=== PATIENT | male | born 1960 | race Caucasian/White ===

== ENCOUNTER 2018-02-08 10:00 | Inpatient (IN) | payer OTHER ==
[2018-02-08] MEDS ORDERED: FUROSEMIDE 10 MG/ML 4 ML VIAL IV STA (10:32)
[2018-02-08] MEDS ORDERED: NITROGLYCERIN OINT 1 INCH/GM PACKET TOPICAL STA (10:34)
[2018-02-08] MEDS ORDERED: ASPIRIN 81 MG PO STA (10:34)
--- NOTE | 2018-02-08 10:41 | ED ---
SOB HPI - General Chief Complaint: Shortness of Breath Stated Complaint: Water Retention Time Seen by Provider: 02/08/18 10:21 Source: patient Mode of arrival: wheelchair Limitations: no limitations - History of Present Illness Initial Comments: This 57-year-old white male presents with a complaint of shortness breath. He relates that the shortness of breath is much worse with any exertion. He's had some severe lower extremity edema as well. He denies any chest pain. He's had a cough with whitish to yellowish production. His symptoms initially came on in October 2017 but have progressed. He receives most of his care thus far through [facility] in [place]. He relates that he was diagnosed with a pericardial effusion which was initially diagnosed as mild but then has progressed to moderate. No intervention was done in relation to this pericardial effusion. He does relate that he normally will take Motrin or Aleve and this seems to help with the pericardial effusion. He also had his last echo 2 weeks ago through [facility]. He is diagnosed with gallbladder disease and is scheduled to have his gallbladder out tomorrow by Dr. Manzo. He states that he has had to stop the Motrin or Aleve due to the upcoming surgery. Symptoms now seem to have worsened. He was seen and Dr. garg on Lj's office today and sent to the ER for suspected congestive heart failure and atrial fibrillation. He does relate that he has atrial fibrillation. He was on blood thinners but stopped them this past fall. He states that he had a difficult time controlling a accurate level for his Coumadin. He denies any fevers or chills. No other complaints or modifying factors. - Related Data Home Medications Medication Instructions Recorded Confirmed Bumetanide 2 mg PO BID 02/06/18 02/08/18 Potassium Chloride [Klor-Con 20] 20 meq PO DAILY 02/06/18 02/08/18 Allergies Allergy/AdvReac Type Severity Reaction Status Date / Time morphine Allergy irregular Verified 02/08/18 10:18 heartbeat vancomycin Allergy Rash/Hives Verified 02/08/18 10:18 Review of Systems ROS Statement: Those systems with pertinent positive or pertinent negative responses have been documented in the HPI. ROS Other: All systems not noted in ROS Statement are negative. Past Medical History Past Medical History: Atrial Fibrillation, Heart Failure, Hypertension, Skin Disorder, Sleep Apnea/CPAP/BIPAP Additional Past Medical History / Comment(s): severe gas, rash on elbows, gets a lot of mucous in throat, gets swelling of legs since Aug 2017-cause unknown, has inguinal hernia, pericardial effusion History of Any Multi-Drug Resistant Organisms: None Reported Past Surgical History: Heart Catheterization Additional Past Surgical History / Comment(s): cardioversion x 3 Past Anesthesia/Blood Transfusion Reactions: Previous Problems w/ Anesthesia Additional Past Anesthesia/Blood Transfusion Reaction / Comment(s): narrow esophagus-diff intubation - card with intubation information scanned in and also hard copy on chart. Past Psychological History: No Psychological Hx Reported Smoking Status: Never smoker - Past Family History Mother Family Medical History: No Reported History General Exam - General Exam Comments Initial Comments: GENERAL: The patient is well nourished and well hydrated. VITAL SIGNS: Heart rate, blood pressure, respiratory rate reviewed as recorded in nurse's notes. EYES: Pupils are round and reactive. Extraocular movements are intact. No conjunctival / lid redness or swelling. ENT: No external evidence of injury, swelling, or ecchymosis. Airway is patent. Throat is clear. NECK: Nontender. No swelling or evidence of injury. No subcutaneous emphysema. Trachea is midline. No thyroid mass. HEART: An irregular heart rhythm is noted. Good peripheral pulses. LUNGS/CHEST: Mild Rales noted. No ecchymosis, subcutaneous emphysema, or tenderness. ABDOMEN: There is mild tenderness over the right upper quadrant. No palpable masses or organomegaly. No peritoneal signs. No abdominal wall swelling or ecchymosis. EXTREMITIES: No extremity tenderness. Normal muscle tone and function. No thoracolumbar tenderness. There is severe pitting edema noted to bilateral lower extremities. NEUROLOGIC: Sensation is grossly intact. Cranial nerve exam reveals face is symmetrical, tongue is midline, speech is clear. SKIN: No abrasions or ecchymosis is noted. No induration or masses noted. PSYCHIATRIC: Alert and oriented. Appropriate behavior and judgment. Limitations: no limitations Course Vital Signs 02/08/18 02/08/18 10:05 11:54 Temperature 96.9 F L Pulse Rate 68 109 H Respiratory 22 20 Rate Blood Pressure 136/76 145/77 O2 Sat by Pulse 94 L 98 Oximetry Medical Decision Making - Medical Decision Making The patient was seen and examined. All diagnostics were reviewed. He does receive aspirin as well as Nitropaste and 80 mg of Lasix intravenously. The EKG shows evidence of atrial fibrillation with rapid ventricular response with a heart rate of 114. There is a left axis deviation. There is nonspecific ST- T wave changes in the lateral leads. The QRS duration is 108 and the QTC intervals 468. He is started on a Cardizem drip and receives a bolus. The chest x-ray does show signs of significant cardiomegaly. There is likely significant congestive heart failure as well. The patient had a stat echocardiogram completed but results are currently pending. The laboratory did show an elevation of the troponin. The possibility of a non-ST elevation myocardial infarction is certainly possible. He did put out over 3 L of urine after receiving the Lasix. He is feeling improved on recheck. The cardiac nurse practitioner does call down and relates that she would like him to come up to the floor immediately. The case is discussed with Dr. Alvarez and he is agreeable with admission with cardiology to consult. Patient will be transferred to floor shortly. - Lab Data Result diagrams: 02/08/18 10:48 02/08/18 10:48 Lab Results 02/08/18 02/08/18 02/08/18 Range/Units 10:48 10:48 10:48 WBC 8.2 (3.8-10.6) k/uL RBC 5.41 (4.30-5.90) m/uL Hgb 15.8 (13.0-17.5) gm/dL Hct 49.6 (39.0-53.0) % MCV 91.6 (80.0-100.0) fL MCH 29.2 (25.0-35.0) pg MCHC 31.9 (31.0-37.0) g/dL RDW 15.1 (11.5-15.5) % Plt Count 113 L (150-450) k/uL Neutrophils % 79 % Lymphocytes % 13 % Monocytes % 6 % Eosinophils % 1 % Basophils % 0 % Neutrophils # 6.5 (1.3-7.7) k/uL Lymphocytes # 1.0 (1.0-4.8) k/uL Monocytes # 0.5 (0-1.0) k/uL Eosinophils # 0.1 (0-0.7) k/uL Basophils # 0.0 (0-0.2) k/uL Hypochromasia Slight PT (9.0-12.0) sec INR (<1.2) APTT (22.0-30.0) sec Sodium 147 H (137-145) mmol/L Potassium 3.5 (3.5-5.1) mmol/L Chloride 102 (98-107) mmol/L Carbon Dioxide 33 H (22-30) mmol/L Anion Gap 12 mmol/L BUN 20 (9-20) mg/dL Creatinine 1.21 (0.66-1.25) mg/dL Est GFR (CKD-EPI)AfAm 76 (>60 ml/min/1.73 sqM) Est GFR (CKD-EPI)NonAf 65 (>60 ml/min/1.73 sqM) Glucose 97 (74-99) mg/dL Calcium 9.7 (8.4-10.2) mg/dL Total Bilirubin 2.6 H (0.2-1.3) mg/dL AST 44 (17-59) U/L ALT 40 (21-72) U/L Alkaline Phosphatase 98 (38-126) U/L Total Creatine Kinase 154 (55-170) U/L CK-MB (CK-2) 3.3 H* (0.0-2.4) ng/mL CK-MB (CK-2) Rel Index 2.1 Troponin I 0.073 H* (0.000-0.034) ng/mL NT-Pro-B Natriuret Pep pg/mL Total Protein 6.3 (6.3-8.2) g/dL Albumin 3.9 (3.5-5.0) g/dL 02/08/18 02/08/18 Range/Units 10:48 10:48 WBC (3.8-10.6) k/uL RBC (4.30-5.90) m/uL Hgb (13.0-17.5) gm/dL Hct (39.0-53.0) % MCV (80.0-100.0) fL MCH (25.0-35.0) pg MCHC (31.0-37.0) g/dL RDW (11.5-15.5) % Plt Count (150-450) k/uL Neutrophils % % Lymphocytes % % Monocytes % % Eosinophils % % Basophils % % Neutrophils # (1.3-7.7) k/uL Lymphocytes # (1.0-4.8) k/uL Monocytes # (0-1.0) k/uL Eosinophils # (0-0.7) k/uL Basophils # (0-0.2) k/uL Hypochromasia PT 12.4 H (9.0-12.0) sec INR 1.3 H (<1.2) APTT 23.5 (22.0-30.0) sec Sodium (137-145) mmol/L Potassium (3.5-5.1) mmol/L Chloride (98-107) mmol/L Carbon Dioxide (22-30) mmol/L Anion Gap mmol/L BUN (9-20) mg/dL Creatinine (0.66-1.25) mg/dL Est GFR (CKD-EPI)AfAm (>60 ml/min/1.73 sqM) Est GFR (CKD-EPI)NonAf (>60 ml/min/1.73 sqM) Glucose (74-99) mg/dL Calcium (8.4-10.2) mg/dL Total Bilirubin (0.2-1.3) mg/dL AST (17-59) U/L ALT (21-72) U/L Alkaline Phosphatase (38-126) U/L Total Creatine Kinase (55-170) U/L CK-MB (CK-2) (0.0-2.4) ng/mL CK-MB (CK-2) Rel Index Troponin I (0.000-0.034) ng/mL NT-Pro-B Natriuret Pep 3580 pg/mL Total Protein (6.3-8.2) g/dL Albumin (3.5-5.0) g/dL Disposition Clinical Impression: Congestive heart failure, Pericardial effusion, Dyspnea on exertion, Lower extremity edema, Gallbladder disease, Morbid obesity, Atrial fibrillation with rapid ventricular response, Hypertension, Elevated troponin Disposition: ADMITTED IP TO THIS HOSP Condition: Fair Is patient prescribed a controlled substance at d/c from ED?: No Time of Disposition: 12:16 Decision Date: 02/08/18 Decision Time: 12:16
[2018-02-08 11:11] LABS: Basophils % (A) 0 %; Eosinophils # (A) 0.1 k/uL (0-0.7); Eosinophils % (A) 1 %; HCT 49.6 % (39.0-53.0); HGB 15.8 gm/dL (13.0-17.5); Hypochromasia Slight; Lymphocytes % (A) 13 %; MCH 29.2 pg (25.0-35.0); MCHC 31.9 g/dL (31.0-37.0); MCV 91.6 fL (80.0-100.0); Mean Platelet Volume 9.1; Monocytes # (A) 0.5 k/uL (0-1.0); Monocytes % (A) 6 %; Neutrophils # (A) 6.5 k/uL (1.3-7.7); Neutrophils % (A) 79 %; Platelet Count 113 k/uL (150-450); RBC 5.41 m/uL (4.30-5.90); RDW 15.1 % (11.5-15.5); WBC 8.2 k/uL (3.8-10.6)
[2018-02-08] MEDS ORDERED: DILTIAZEM 50 MG in SODIUM CHLORIDE 0.9% 40 ML IV ONE (11:17)
--- NOTE | 2018-02-08 11:17 | XR ---
EXAMINATION TYPE: XR chest 2V DATE OF EXAM: 02/08/2018 COMPARISON: NONE TECHNIQUE: PA and lateral views submitted. HISTORY: Shortness of breath FINDINGS: Heart is markedly enlarged and there is bilateral consolidation and pleural effusion. No pneumothorax . There is degenerative change of the spine. Technique limits the exam. IMPRESSION: 1. Bilateral infiltrate and pleural effusion. Pneumonia versus CHF.
[2018-02-08 11:19] LABS: INR 1.3 (<1.2); Partial Thromboplastin Time 23.5 sec (22.0-30.0); Prothrombin Time 12.4 sec (9.0-12.0)
[2018-02-08 11:22] LABS: Albumin 3.9 g/dL (3.5-5.0); Calcium 9.7 mg/dL (8.4-10.2); Potassium 3.5 mmol/L (3.5-5.1); Total Bilirubin 2.6 mg/dL (0.2-1.3); Total Protein 6.3 g/dL (6.3-8.2)
[2018-02-08 11:49] LABS: Creatine Kinase MB 3.3 ng/mL (0.0-2.4); Troponin I 0.073 ng/mL (0.000-0.034)
[2018-02-08] MEDS ORDERED: FUROSEMIDE 10 MG/ML 4 ML VIAL IV SCH (12:30)
--- NOTE | 2018-02-08 12:41 | ECHOF ---
Referral Reason:sob MEASUREMENTS -------- HEIGHT: 182.9 cm WEIGHT: 163.3 kg BP: RVIDd: 4.0 cm (< 3.3) IVSd: 1.9 cm (0.6 - 1.1) LVIDd: 6.5 cm (3.9 - 5.3) LVPWd: 2.0 cm (0.6 - 1.1) IVSs: 1.9 cm LVIDs: 6.0 cm LVPWs: 2.1 cm LA Diam: 5.4 cm (2.7 - 3.8) LAESV Index (A-L): 57.98 ml/m Ao Diam: 4.4 cm (2.0 - 3.7) AV Cusp: 2.2 cm (1.5 - 2.6) LA Diam: 5.0 cm (2.7 - 3.8) MV EXCURSION: 15.098 mm (> 18.000) MV EF SLOPE: 126 mm/s (70 - 150) EPSS: 1.7 cm MV E Musa: 0.87 m/s MV DecT: 128 ms MV A Musa: 0.74 m/s MV E/A Ratio: 1.17 RAP: 5.00 mmHg RVSP: 23.14 mmHg FINDINGS -------- Sinus rhythm. Morbid Obesity This was a techncally difficult study with suboptimal views, , Lumason utilized for enhancement of im ages. There is moderate concentric left ventricular hypertrophy. There is severe global hypokinesis of LV . Overall left ventricular systolic function is severely impaired with, an EF < 20%. The right ventricle is normal in size. The left atrial size is normal. LA is severely dilated >40 ml/m2 The right atrial size is normal. 5.0mg OF Lumason UTLIZED: 2 OR MORE WALL SEGMENTS NOT VISUALIZED. The aortic valve is trileaflet, and appears structurally normal. No aortic stenosis or regurgitation. Mild mitral annular calcification present. Mild mitral regurgitation is present. Mild tricuspid regurgitation present. There is no evidence of pulmonary hypertension. The right v entricular systolic pressure, as measured by Doppler, is 23.14mmHg. There is no pulmonic regurgitation present. The aortic root size is normal. There is a small, generalized pericardial effusion present. CONCLUSIONS -------- 1. Morbid Obesity 2. This was a techncally difficult study with suboptimal views, , Lumason utilized for enhancement of images. 3. There is moderate concentric left ventricular hypertrophy. 4. There is severe global hypokinesis of LV . 5. Overall left ventricular systolic function is severely impaired with, an EF < 20%. 6. The right ventricle is normal in size. 7. LA is severely dilated >40 ml/m2 8. 5.0mg OF Lumason UTLIZED: 2 OR MORE WALL SEGMENTS NOT VISUALIZED. 9. The aortic valve is trileaflet, and appears structurally normal. No aortic stenosis or regurgitati on. 10. Mild mitral annular calcification present. 11. Mild mitral regurgitation is present. 12. Mild tricuspid regurgitation present. 13. There is no evidence of pulmonary hypertension. 14. The right ventricular systolic pressure, as measured by Doppler, is 23.14mmHg. 15. There is no pulmonic regurgitation present. 16. The aortic root size is normal. 17. There is a small, generalized pericardial effusion present. SEASONAL CLERK: Ashley Govea RDCS
[2018-02-08] MEDS ORDERED: NITROGLYCERIN OINT 1 INCH/GM PACKET TOPICAL SCH (13:00)
[2018-02-08] MEDS: APIXABAN 5 MG TAB PO SCH ×2 (14:55→20:57)
[2018-02-08] MEDS: FUROSEMIDE 250 MG in SODIUM CHLORIDE 0.9% 225 ML IVP SCH (14:55)
[2018-02-08] MEDS: LOSARTAN 25 MG TAB PO SCH (14:56)
[2018-02-08 15:25] VITALS: BMI 48.8
[2018-02-08] MEDS ORDERED: ACETAMINOPHEN TAB 325 MG TAB PO PRN (17:21)
[2018-02-08] MEDS ORDERED: CALCIUM CARBONATE 500 MG CHEWABLE PO PRN (17:21)
[2018-02-08] MEDS ORDERED: NALOXONE 0.4 MG/ML 1 ML VIAL IV PRN (17:21)
[2018-02-08] MEDS ORDERED: ALPRAZolam 0.25 MG TAB PO PRN (17:21)
[2018-02-08] MEDS: CARVEDILOL 6.25 MG TAB PO SCH (17:21)
[2018-02-08] MEDS ORDERED: ONDANSETRON 4 MG/2 ML VIAL IVP PRN (17:21)
[2018-02-08] MEDS ORDERED: MELATONIN 3 MG TABLET PO PRN (17:21)
[2018-02-08] MEDS ORDERED: CARVEDILOL 3.125 MG TAB PO SCH (17:30)
[2018-02-08 17:37] LABS: Troponin I 0.068 ng/mL (0.000-0.034)
[2018-02-08] MEDS ORDERED: FUROSEMIDE 10 MG/ML 10 ML VIAL IV SCH (21:00)
[2018-02-08 23:27] LABS: Creatine Kinase MB 2.7 ng/mL (0.0-2.4); Troponin I 0.07 ng/mL (0.000-0.034)
--- NOTE | 2018-02-08 23:27 | HP ---
HISTORY AND PHYSICAL DATE OF SERVICE: 02/08/2018 PRESENT COMPLAINT: Short of breath. HISTORY OF PRESENTING COMPLAINT: A very pleasant 57-year-old patient who follows with Dr. Dean. Chronic stable medical conditions include atrial fibrillation, hypertension, obstructive sleep apnea, uses CPAP machine, inguinal hernia. The patient has had cardioversion x3 in the past. The patient was due for a gallbladder surgery by Dr. Manzo tomorrow. For 1 month, patient has been getting increasingly short of breath and had a cardiac workup. The patient has been getting more and more lower extremity edema, having orthopnea and also PND, very occasional chest pressure. Was seen by Dr. Portillo in the office, who sent him to the hospital. The patient sometime ago did have pericardial effusion, was treated with NSAIDs. This was at . The patient has no more details available. The patient's son is present with him. Denies any other prior cardiac history. REVIEW OF SYSTEMS: CONSTITUTIONAL: Tired. HEENT: None. RESPIRATORY: As above. CARDIOVASCULAR: As above. GASTROINTESTINAL: None. GENITOURINARY: None. MUSCULOSKELETAL: None. DERMATOLOGICAL: None. HEMATOLOGIC: None. LYMPHATIC: None. PSYCHIATRY: None. NEUROLOGICAL: None. PAST MEDICAL HISTORY: Of atrial fibrillation, hypertension, obstructive sleep apnea, inguinal hernia. PAST SURGICAL HISTORY: Cardiac catheterization, cardioversion x3. SOCIAL HISTORY: No smoking, alcohol rarely, . The patient is a cross country truck driver. FAMILY HISTORY: Reviewed, noncontributory to presentation. HOME MEDICATIONS: 1. Potassium 20 mEq a day. 2. Bumex 2 mg p.o. b.i.d. ALLERGIES: To MORPHINE, VANCOMYCIN. EXAMINATION: Temperature 97.7, pulse 95, respiratory rate 18, blood pressure 134/88, pulse ox 95% on room air. GENERAL APPEARANCE: Morbidly obese, BMI of 48.8. Sitting at the edge of the bed, tired-appearing. EYES: Pupils equal. Conjunctivae normal. HEENT: External nose and ears normal. Oral cavity normal. NECK: JVD unable to assess. Mass not palpable. RESPIRATORY: Effort increased. LUNGS: Diminished breath sounds. CARDIOVASCULAR: First and second sounds normal. Edema present. ABDOMEN: Distended, soft. Liver and spleen not palpable. LYMPHATIC: No lymph nodes palpable in neck or axillae. PSYCHIATRY: Alert and oriented x3. Mood and affect normal. NEUROLOGICAL: Pupils equal. Cranial nerves grossly intact. Power and sensation grossly intact. INVESTIGATIONS: White count 8.2, hemoglobin 15.8. Potassium 3.5, BUN and creatinine are normal. Troponin 0.073, 0.068. TSH 2.5. ProBNP 3580. EKG: Atrial fibrillation with a rate about 114. 2D echocardiogram shows EF less than 20%, moderate concentric left ventricular hypertrophy. Chest x-ray: Bilateral pleural effusion. ASSESSMENT: 1. Acute on chronic congestive heart failure from systolic dysfunction, ejection fraction 20%. 2. Persistent atrial fibrillation with cardioversion x3 in the past. 3. Morbid obesity, BMI 48.8. 4. Hypertensive heart disease. 5. Obstructive sleep apnea, uses CPAP machine. 6. Inguinal hernia. 7. Essential hypertension. PLAN: The patient is started on Eliquis, aspirin, Coreg 6.25 b.i.d., a Lasix drip at 10 mcg, Cozaar and Aldactone. Cardiology was consulted. Care was discussed with the patient and the sone at bedside. Will also get a dietitian consult for some weight loss measures. Prognosis is guarded. The patient may need a cardiac catheterization to rule out any ischemic component. MMODL / IJN: [id number] /
[2018-02-09 05:52] LABS: Calcium 9.7 mg/dL (8.4-10.2); Magnesium 2.1 mg/dL (1.6-2.3); Potassium 3.5 mmol/L (3.5-5.1)
[2018-02-09] MEDS: CARVEDILOL 6.25 MG TAB PO SCH ×2 (06:10→19:05)
[2018-02-09] MEDS ORDERED: ENOXAPARIN 40 MG/0.4 ML SYRINGE SQ SCH (09:00)
[2018-02-09] MEDS: APIXABAN 5 MG TAB PO SCH ×2 (09:27→19:41)
[2018-02-09] MEDS: ASPIRIN 81 MG PO SCH (09:28)
[2018-02-09] MEDS: SPIRONOLACTONE 25 MG TAB PO SCH (09:28)
[2018-02-09] MEDS: LOSARTAN 25 MG TAB PO SCH ×2 (09:28→09:32)
[2018-02-09] MEDS ORDERED: ASPIRIN 325 MG TAB PO SCH (12:00)
[2018-02-09] MEDS: FUROSEMIDE 250 MG in SODIUM CHLORIDE 0.9% 225 ML IVP SCH (13:16)
--- NOTE | 2018-02-09 13:40 | P.PN ---
Subjective Progress Note Date: 02/09/18 Principal diagnosis: CHF, cardiac myopathy, atrial fibrillation This is a pleasant 57-year-old gentleman who was directly admitted to the hospital by Dr. Portillo. He's been having symptoms of progressive dyspnea with associated peripheral edema and fatigue. Patient has been aware that since 2089 is congestive heart failure, and underwent cardiac catheterization likely in 2012 which revealed no evidence of coronary artery disease. Patient also has history of chronic persistent atrial fibrillation for which she's underwent cardioversion 3 times, however continues to be in A. fib. Patient has not been taking his anticoagulation and stopped all of his other medications and stopped his diuretics. Patient had an echocardiogram with Doppler study performed in October which revealed a severely impaired systolic function with an ejection fraction of 20% and a small pericardial effusion. Patient was admitted by Dr. Portillo, initiated on IV Lasix drip. He was also started on Eliquis. Patient has refused to take any doses of his Eliquis, he is also refused to take his Cozaar dates it makes his heart go slow. Patient was informed that Cozaar does not affect the heart rate, however he is still at this point refusing to take it. Echocardiogram with Doppler study performed here revealed an ejection fraction of less than 20%, LAD is severely dilated, small generalized pericardial effusion present. Sodium 148, potassium 3.5, BUN 18, creatinine 1.2. Troponins 0.07, 0.06, 0.07. BNP level 3580, TSH 2.5. Patient's weight is down 4 kg today. He continues to diurese well on his IV Lasix drip. Objective - Vital Signs Vital signs: Vital Signs Temp 96.8 F L 02/09/18 12:25 Pulse 91 02/09/18 12:25 Resp 18 02/09/18 12:25 BP 136/88 02/09/18 12:25 Pulse Ox 94 L 02/09/18 12:25 Intake & Output 02/08/18 02/09/18 02/09/18 18:59 06:59 18:59 Intake Total 240 223.5 Output Total 2225 640 650 Balance -1985 -950 -426.5 Weight 163.293 kg 159.3 kg Intake: Intake, IV Titration 223.5 Amount Furosemide 250 mg In 223.5 Sodium Chloride 0.9% 225 ml @ 10 MG/HR 10 mls/hr IVP .Q24H [facility] Rx#: [id number] Oral 240 Output: Urine 2225 950 650 Other: # Voids 1 # Bowel Movements 0 - Exam PHYSICAL EXAMINATION: HEENT: Head is atraumatic, normocephalic. Pupils equal, round. Neck is supple. There is no elevated jugular venous pressure. HEART EXAMINATION: Heart S1 and S2 irregularly irregular a holosystolic murmur is heard. CHEST EXAMINATION: Lungs reveal rales bilaterally with diminished air entry to the bases. ABDOMEN: Soft, nontender. Bowel sounds are heard. No organomegaly noted. EXTREMITIES: 2+ peripheral pulses with no evidence of 2-3+ peripheral edema and no calf tenderness noted. NEUROLOGIC patient is awake, alert and oriented -3. . - Labs CBC & Chem 7: 02/08/18 10:48 02/09/18 05:29 Labs: Abnormal Lab Results - Last 24 Hours (Table) 02/08/18 02/08/18 02/09/18 Range/Units 16:34 22:18 05:29 Sodium 148 H (137-145) mmol/L Carbon Dioxide 35 H (22-30) mmol/L Glucose 103 H (74-99) mg/dL CK-MB (CK-2) 3.0 H* 2.7 H* (0.0-2.4) ng/mL Troponin I 0.068 H* 0.070 H* (0.000-0.034) ng/mL Microbiology - Last 24 Hours (Table) 02/08/18 10:48 Blood Culture - Preliminary Blood No Growth after 24 hours Assessment and Plan Plan: Assessment and plan #1 systolic congestive heart failure acute on chronic #2 nonischemic cardio myopathy with documented ejection fraction of less than 20 % #3 chronic persistent atrial fibrillation, patient was advised to start Eliquis for anticoagulation, at this point he is refusing. #4 hypertension # 5 history of noncompliance Plan From cardiology, recommendation is to continue IV Lasix drip, patient again has been encouraged regarding taking his Eliquis for stroke prevention. He has also been educated and encouraged to take the rest of his medications as well. We will continue to monitor intake and open along with daily weights and daily lytes BUN and creatinine DNP note has been reviewed, I agree with a documented findings and plan of care. Patient was seen and examined.
[2018-02-09] MEDS ORDERED: POTASSIUM CHLORIDE ER 20 MEQ TAB.ER PO STA (20:56)
--- NOTE | 2018-02-09 21:28 | PN ---
PROGRESS NOTE DATE OF SERVICE: February 09, 2018. PRESENT COMPLAINT: Short of breath. INTERVAL HISTORY: This is a patient admitted with CHF exacerbation and atrial fibrillation with prior cardioversion. The patient is on a Lasix drip. Has put out close to 3 L of negative fluid balance. Breathing is a shade better. Tolerating his diet. Son is at the bedside. REVIEW OF SYSTEMS: Done for constitutional, cardiovascular, GI, pulmonary; relevant findings above. CURRENT MEDICATIONS: Include: 1. Eliquis 5 mg b.i.d. 2. Lasix drip at 10 mL an hour. 3. Aldactone. 4. Cozaar. PHYSICAL EXAMINATION: Temperature 97.4, pulse, respiration 16, blood pressure 120/79, pulse ox 97% on room. General appearance: Sitting at the edge of the bed, less short of breath. Eyes: Pupils are equal. Conjunctivae normal. HEENT: External appearance of nose and ears normal. Oral cavity normal. Neck JVD unable to assess. Mass not palpable. Respiratory effort increased. Lungs decreased breath sounds. Cardiovascular: HEART: Sounds irregular, edema present. Abdomen distended soft. Liver and spleen not palpable. Psychiatry: Alert and oriented times three. Mood and affect is normal. INVESTIGATIONS: Potassium 3.5, BUN 18, creatinine 1.20. TSH normal. ASSESSMENT: 1. Acute on chronic congestive heart failure from systolic dysfunction ejection fraction 20%. 2. Persistent atrial fibrillation, started on Eliquis. 3. Morbid obesity BMI 48.8. 4. Hypertensive heart disease. 5. Obstructive sleep apnea uses CPAP machine. 6. Inguinal hernia. 7. Essential hypertension. 8. IV Lasix drip monitoring. PLAN: Continue current medication and treatment plan. I told the patient to cut back on his fluid intake. Follow with Cardiology. MMODL / IJN: [id number] /
[2018-02-10 06:09] LABS: Calcium 9.3 mg/dL (8.4-10.2); Potassium 3.4 mmol/L (3.5-5.1)
[2018-02-10] MEDS: CARVEDILOL 6.25 MG TAB PO SCH ×2 (06:35→17:04)
[2018-02-10] MEDS: LOSARTAN 25 MG TAB PO SCH (08:40)
[2018-02-10] MEDS: SPIRONOLACTONE 25 MG TAB PO SCH (08:40)
[2018-02-10] MEDS: APIXABAN 5 MG TAB PO SCH ×2 (08:40→20:55)
[2018-02-10] MEDS: ASPIRIN 81 MG PO SCH (08:40)
[2018-02-10] MEDS: FUROSEMIDE 250 MG in SODIUM CHLORIDE 0.9% 225 ML IVP SCH (11:53)
--- NOTE | 2018-02-10 12:16 | P.PN ---
Subjective Progress Note Date: 02/10/18 This is a 57-year-old patient was directly admitted to the hospital by Dr. Portillo secondary to dyspnea and peripheral edema. Patient was found to be in atrial fibrillation and underwent cardioversion 3 times however continues to be in atrial fibrillation. He is declining anticoagulation at this time. His heart rate is well controlled. Potassium level is low and we will replace today. He has no lower extremity edema. He is hemodynamically stable denies any chest pain or shortness of breath at rest. Objective - Vital Signs Vital signs: Vital Signs Temp 97.2 F L 02/10/18 08:00 Pulse 77 02/10/18 08:00 Resp 18 02/10/18 08:00 BP 114/75 02/10/18 08:00 Pulse Ox 93 L 02/10/18 08:00 Intake & Output 02/09/18 02/10/18 02/10/18 18:59 06:59 18:59 Intake Total 223.5 326.167 Output Total 1000 1675 425 Balance -776.5 -1675 -98.833 Weight 158 kg Intake: Intake, IV Titration 223.5 226.167 Amount Furosemide 250 mg In 223.5 226.167 Sodium Chloride 0.9% 225 ml @ 10 MG/HR 10 mls/hr IVP .Q24H SP Rx#: [id number] Oral 100 Output: Urine 1000 1675 425 - Constitutional General appearance: Present: obese - EENT Eyes: Present: normal appearance ENT: Present: normal oropharynx Ears: bilateral: normal - Neck Carotids: bilateral: upstroke normal - Respiratory Respiratory: bilateral: diminished - Cardiovascular Rhythm: irregularly irregular Abnormal Heart Sounds: Present: systolic murmur - Gastrointestinal General gastrointestinal: Present: soft - Integumentary Integumentary: Present: normal - Neurologic Neurologic: Present: CNII-XII intact - Musculoskeletal Musculoskeletal: Present: gait normal - Psychiatric Psychiatric: Present: A&O x's 3 - Labs CBC & Chem 7: 02/08/18 10:48 02/10/18 05:19 Labs: Abnormal Lab Results - Last 24 Hours (Table) 02/10/18 Range/Units 05:19 Sodium 146 H (137-145) mmol/L Potassium 3.4 L (3.5-5.1) mmol/L Carbon Dioxide 34 H (22-30) mmol/L Creatinine 1.30 H (0.66-1.25) mg/dL Microbiology - Last 24 Hours (Table) 02/08/18 10:48 Blood Culture - Preliminary Blood No Growth after 24 hours Assessment and Plan Assessment: Acute systolic heart failure Nonischemic cardiomyopathy with ejection fraction of less than 20% Chronic persistent atrial fibrillation Hypertension History of noncompliance Hypokalemia Plan: Continue Lasix drip. Start potassium 20 mEq by mouth twice a day. The patient was recommended to start on liquids however he continues to decline. He states he will only take aspirin. The rationale, risks and benefits have been discussed with him and he is still declining. Continue with strict I AND O, daily weights and monitor his electrolytes and creatinine closely.
[2018-02-10] MEDS: POTASSIUM CHLORIDE ER 20 MEQ TAB.ER PO SCH (20:55)
--- NOTE | 2018-02-10 21:56 | PN ---
PROGRESS NOTE DATE OF SERVICE: 02/10/18 CHIEF COMPLAINT: Shortness of breath. INTERVAL HISTORY: Patient admitted with CHF exacerbation, atrial fibrillation with prior history of cardioversion. Patient remains on a Lasix drip. Will be putting out good urine. The patient has refused to take Eliquis and this was discussed by Cardiology with him. REVIEW OF SYSTEMS: Done for constitutional, cardiovascular, GI, pulmonary; relevant findings as above. CURRENT MEDICATIONS: Reviewed include Lasix drip. The patient refusing Eliquis. PHYSICAL EXAMINATION: Temperature 97.5, pulse 83, respiratory 18, blood pressure 126/80, pulse ox 93% on room air. General appearance: Sitting at the edge of the bed, awake. Eyes pupils are equal. Conjunctivae normal. HEENT: External appearance of nose and ears normal. Oral cavity normal. Neck JVD not raised. Mass not palpable. Respiratory effort increased. Lungs decreased breath sounds. Cardiovascular: First and second sounds normal. Gross edema still present. Abdomen distended, soft. Liver and spleen not palpable. Psychiatry: Alert and oriented x3. Mood and affect normal. INVESTIGATIONS: Potassium 3.4, BUN 19, creatinine 1.30. ASSESSMENT: 1. Acute on chronic congestive heart failure exacerbation from systolic dysfunction, ejection fraction 20%, slow to respond. Continue IV Lasix drip. 2. Persistent atrial fibrillation, rate controlled. The patient has refused to take Eliquis. 3. Morbid obesity BMI 48.8. 4. Hypertensive heart disease. 5. Obstructive sleep apnea uses CPAP machine. 6. Inguinal hernia. 7. Essential hypertension. 8. Patient on IV Lasix drip. PLAN: Patient has refused to take blood thinners. I did re-emphasize the importance of being on fluid restriction. Continue with Lasix drip. Prognosis guarded. MMODL / IJN: [id number] /
[2018-02-11] MEDS: CARVEDILOL 6.25 MG TAB PO SCH ×2 (06:09→17:09)
[2018-02-11 06:14] LABS: Calcium 9.6 mg/dL (8.4-10.2); Potassium 3.4 mmol/L (3.5-5.1)
[2018-02-11] MEDS ORDERED: POTASSIUM CHLORIDE ER 20 MEQ TAB.ER PO SCH (09:00)
[2018-02-11] MEDS: APIXABAN 5 MG TAB PO SCH ×2 (09:12→21:09)
[2018-02-11] MEDS: POTASSIUM CHLORIDE ER 20 MEQ TAB.ER PO SCH ×2 (09:12→21:09)
[2018-02-11] MEDS: LOSARTAN 25 MG TAB PO SCH (09:12)
[2018-02-11] MEDS: SPIRONOLACTONE 25 MG TAB PO SCH (09:13)
--- NOTE | 2018-02-11 14:31 | P.PN ---
Subjective Progress Note Date: 02/11/18 Principal diagnosis: CHF, cardiac myopathy, atrial fibrillation This is a pleasant 57-year-old gentleman who was directly admitted to the hospital by Dr. Portillo. He's been having symptoms of progressive dyspnea with associated peripheral edema and fatigue. Patient has been aware that since 2089 is congestive heart failure, and underwent cardiac catheterization likely in 2012 which revealed no evidence of coronary artery disease. Patient also has history of chronic persistent atrial fibrillation for which she's underwent cardioversion 3 times, however continues to be in A. fib. Patient has not been taking his anticoagulation and stopped all of his other medications and stopped his diuretics. Patient had an echocardiogram with Doppler study performed in October which revealed a severely impaired systolic function with an ejection fraction of 20% and a small pericardial effusion. Patient was admitted by Dr. Portillo, initiated on IV Lasix drip. He was also started on Eliquis. Patient has refused to take any doses of his Eliquis, he is also refused to take his Cozaar dates it makes his heart go slow. Patient was informed that Cozaar does not affect the heart rate, however he is still at this point refusing to take it. Echocardiogram with Doppler study performed here revealed an ejection fraction of less than 20%, LAD is severely dilated, small generalized pericardial effusion present. Sodium 148, potassium 3.5, BUN 18, creatinine 1.2. Troponins 0.07, 0.06, 0.07. BNP level 3580, TSH 2.5. Patient's weight is down 4 kg today. He continues to diurese well on his IV Lasix drip. 02/11/2018 Patient seen and examined this morning, diuresing very well on the IV Lasix drip. Last evening he put out a total of 4000. His weight is down 2 kg today. He continues to have peripheral edema, however much improved from his admission here. Blood pressure 122/70 with a heart rate in the 60s, temperature 97.6, he is 94% on room air. Sodium 146, potassium 3.4, BUN 21, creatinine 1.3. Patient is quite eager to be discharged home. They're still awaiting records from [facility].. Objective - Vital Signs Vital signs: Vital Signs Temp 97.6 F 02/11/18 08:40 Pulse 67 02/11/18 08:40 Resp 18 02/11/18 08:40 BP 122/70 02/11/18 08:40 Pulse Ox 94 L 02/11/18 08:40 Intake & Output 02/10/18 02/11/18 02/11/18 18:59 06:59 18:59 Intake Total 566.167 477 Output Total 2049 1400 1000 Balance -1483.833 -1400 -523 Weight 156.1 kg Intake: Intake, IV Titration 226.167 Amount Furosemide 250 mg In 226.167 Sodium Chloride 0.9% 225 ml @ 10 MG/HR 10 mls/hr IVP .Q24H SP Rx#: [id number] Oral 340 477 Output: Urine 2049 1399 1000 Other: # Voids 1 - Exam PHYSICAL EXAMINATION: HEENT: Head is atraumatic, normocephalic. Pupils equal, round. Neck is supple. There is no elevated jugular venous pressure. HEART EXAMINATION: Heart S1 and S2 irregularly irregular a holosystolic murmur is heard. CHEST EXAMINATION: Lungs reveal rales bilaterally with diminished air entry to the bases. ABDOMEN: Soft, nontender. Bowel sounds are heard. No organomegaly noted. EXTREMITIES: 2+ peripheral pulses with no evidence of 1-2+ peripheral edema and no calf tenderness noted. NEUROLOGIC patient is awake, alert and oriented -3. . - Labs CBC & Chem 7: 02/08/18 10:48 02/11/18 05:38 Labs: Abnormal Lab Results - Last 24 Hours (Table) 02/11/18 Range/Units 05:38 Sodium 146 H (137-145) mmol/L Potassium 3.4 L (3.5-5.1) mmol/L Carbon Dioxide 35 H (22-30) mmol/L BUN 21 H (9-20) mg/dL Creatinine 1.30 H (0.66-1.25) mg/dL Microbiology - Last 24 Hours (Table) 02/08/18 10:48 Blood Culture - Preliminary Blood No Growth after 72 hours Assessment and Plan Plan: Assessment and plan #1 systolic congestive heart failure acute on chronic #2 nonischemic cardio myopathy with documented ejection fraction of less than 20 % #3 chronic persistent atrial fibrillation, patient was advised to start Eliquis for anticoagulation, at this point he is refusing. #4 hypertension # 5 history of noncompliance Plan From cardiology standpoint, we'll discontinue the IV Lasix drip and start the patient on oral diuretics today. Have patient up ambulating in the hallway if possible today. He continues to refuse anticoagulation therapy. DNP note has been reviewed, I agree with a documented findings and plan of care. Patient was seen and examined.
[2018-02-11] MEDS: FUROSEMIDE 250 MG in SODIUM CHLORIDE 0.9% 225 ML IVP SCH (17:50)
[2018-02-11] MEDS: FUROSEMIDE 40 MG TAB PO SCH (18:18)
--- NOTE | 2018-02-11 22:54 | PN ---
PROGRESS NOTE DATE OF SERVICE: 02/11/2018 PRESENTING COMPLAINT: Short of breath. INTERVAL HISTORY: Patient admitted with CHF exacerbation, uncontrolled atrial fibrillation. Earlier today patient was switched from Lasix drip to p.o. Lasix by Cardiology. Patient has been up in the hallway. Patient has refused Eliquis. Heart rate is doing better. REVIEW OF SYSTEMS: Done for constitutional, cardiovascular, GI, pulmonary; relevant findings as above. Denies any chest pain, dizziness, lightheadedness. Patient's son is present. CURRENT MEDICATIONS: Reviewed. They include Lasix 40 mg p.o. b.i.d. and Cozaar. PHYSICAL EXAMINATION: Temperature 97.9, pulse 84, respiration 20, blood pressure 142/103, pulse ox 94% on room air. GENERAL APPEARANCE: Sitting at the edge of the bed, more comfortable. EYES: Pupils equal. Conjunctivae normal. HEENT: External appearance of nose and ears normal. Oral cavity normal. NECK: JVD not raised. Mass not palpable. RESPIRATORY: Effort increased. LUNGS: Decreased breath sounds. CARDIOVASCULAR: First and second sounds normal. Decreased edema but still present. ABDOMEN: Distended, soft. Liver and spleen not palpable. PSYCHIATRY: Alert and oriented x3. Mood and affect normal. INVESTIGATIONS: Potassium 3.4, BUN 21, creatinine 1.30. ASSESSMENT: 1. Acute on chronic congestive heart failure exacerbation from systolic dysfunction, ejection fraction 20%, slow to respond, now doing better. 2. Persistent atrial fibrillation. Heart rate now controlled. Patient has declined to use Eliquis. 3. Morbid obesity with body mass index of 48.8. 4. Hypertensive heart disease. 5. Obstructive sleep apnea; uses CPAP machine. 6. Inguinal hernia. 7. Essential hypertension. PLAN: Encourage the patient to be up and about today. See how he does. If he remains stable, then he probably can be discharged tomorrow. MMODL / IJN: [id number] /
[2018-02-12 00:52] VITALS: RESP 18
[2018-02-12] MEDS: CARVEDILOL 6.25 MG TAB PO SCH (06:32)
[2018-02-12 07:46] LABS: Magnesium 2.1 mg/dL (1.6-2.3); Potassium 3.7 mmol/L (3.5-5.1)
[2018-02-12 08:28] LABS: Calcium 9.5 mg/dL (8.4-10.2)
[2018-02-12] MEDS: LOSARTAN 25 MG TAB PO SCH (08:53)
[2018-02-12] MEDS: APIXABAN 5 MG TAB PO SCH (08:53)
[2018-02-12] MEDS: SPIRONOLACTONE 25 MG TAB PO SCH (08:53)
[2018-02-12] MEDS: POTASSIUM CHLORIDE ER 20 MEQ TAB.ER PO SCH (08:53)
[2018-02-12] MEDS: FUROSEMIDE 40 MG TAB PO SCH (08:53)
[2018-02-12 08:55] VITALS: BP 114/71; TEMP 96.7
[2018-02-12 12:43] VITALS: PULSE 58
--- NOTE | 2018-02-12 13:40 | P.PN ---
Subjective Progress Note Date: 02/12/18 Principal diagnosis: CHF, cardiac myopathy, atrial fibrillation This is a pleasant 57-year-old gentleman who was directly admitted to the hospital by Dr. Portillo. He's been having symptoms of progressive dyspnea with associated peripheral edema and fatigue. Patient has been aware that since 2089 is congestive heart failure, and underwent cardiac catheterization likely in 2012 which revealed no evidence of coronary artery disease. Patient also has history of chronic persistent atrial fibrillation for which she's underwent cardioversion 3 times, however continues to be in A. fib. Patient has not been taking his anticoagulation and stopped all of his other medications and stopped his diuretics. Patient had an echocardiogram with Doppler study performed in October which revealed a severely impaired systolic function with an ejection fraction of 20% and a small pericardial effusion. Patient was admitted by Dr. Portillo, initiated on IV Lasix drip. He was also started on Eliquis. Patient has refused to take any doses of his Eliquis, he is also refused to take his Cozaar dates it makes his heart go slow. Patient was informed that Cozaar does not affect the heart rate, however he is still at this point refusing to take it. Echocardiogram with Doppler study performed here revealed an ejection fraction of less than 20%, LAD is severely dilated, small generalized pericardial effusion present. Sodium 148, potassium 3.5, BUN 18, creatinine 1.2. Troponins 0.07, 0.06, 0.07. BNP level 3580, TSH 2.5. Patient's weight is down 4 kg today. He continues to diurese well on his IV Lasix drip. 02/11/2018 Patient seen and examined this morning, diuresing very well on the IV Lasix drip. Last evening he put out a total of 4000. His weight is down 2 kg today. He continues to have peripheral edema, however much improved from his admission here. Blood pressure 122/70 with a heart rate in the 60s, temperature 97.6, he is 94% on room air. Sodium 146, potassium 3.4, BUN 21, creatinine 1.3. Patient is quite eager to be discharged home. They're still awaiting records from [facility].. 02/12/2018 Patient was seen and examined this morning, he's been up ambulating in the hallway most morning, breathing is overall stable. Weight is down 2 more kilograms today. Sodium 145, potassium 3.7, BUN 22, creatinine 1.2. Patient is quite adamant on being discharged home today. He is still stating that he will refuse to take his blood thinner on discharge. Objective - Vital Signs Vital signs: Vital Signs Temp 96.7 F L 02/12/18 08:00 Pulse 56 L 02/12/18 08:00 Resp 18 02/12/18 04:00 BP 114/71 02/12/18 08:00 Pulse Ox 96 02/12/18 08:00 Intake & Output 02/11/18 02/12/18 02/12/18 18:59 06:59 18:59 Intake Total 714 540 240 Output Total 1890 125 Balance -1176 415 240 Weight 154.4 kg Intake: Oral 714 540 240 Output: Urine 1890 125 Other: Voiding Method Urinal # Voids 2 - Exam PHYSICAL EXAMINATION: HEENT: Head is atraumatic, normocephalic. Pupils equal, round. Neck is supple. There is no elevated jugular venous pressure. HEART EXAMINATION: Heart S1 and S2 irregularly irregular a holosystolic murmur is heard. CHEST EXAMINATION: Lungs reveal rales bilaterally with diminished air entry to the bases. ABDOMEN: Soft, nontender. Bowel sounds are heard. No organomegaly noted. EXTREMITIES: 2+ peripheral pulses with no evidence of 1-2+ peripheral edema and no calf tenderness noted. NEUROLOGIC patient is awake, alert and oriented -3. . - Labs CBC & Chem 7: 02/08/18 10:48 02/12/18 07:17 Labs: Abnormal Lab Results - Last 24 Hours (Table) 02/12/18 Range/Units 07:17 Carbon Dioxide 34 H (22-30) mmol/L BUN 22 H (9-20) mg/dL Creatinine 1.26 H (0.66-1.25) mg/dL Glucose 113 H (74-99) mg/dL Microbiology - Last 24 Hours (Table) 02/08/18 10:48 Blood Culture - Preliminary Blood No Growth after 72 hours Assessment and Plan Plan: Assessment and plan #1 systolic congestive heart failure acute on chronic #2 nonischemic cardio myopathy with documented ejection fraction of less than 20 % #3 chronic persistent atrial fibrillation, patient was advised to start Eliquis for anticoagulation, at this point he is refusing. #4 hypertension # 5 history of noncompliance Plan Cardiology's perspective, patient may be able to be discharged home today. We will make him a follow-up appointment to see Dr. Portillo in the office post discharge. Patient again has been advised regarding the importance of taking all of his medications including the blood thinner Eliquis for stroke prevention. BMP one week DNP note has been reviewed, I agree with a documented findings and plan of care. Patient was seen and examined.
--- NOTE | 2018-02-13 05:34 | DS ---
DISCHARGE SUMMARY DATE OF ADMISSION: 02/08/2018 DATE OF DISCHARGE: 02/12/2018 FINAL DIAGNOSES: 1. Acute on chronic congestive heart failure exacerbation from systolic dysfunction, ejection fraction 20%. 2. Persistent atrial fibrillation. The patient has declined Eliquis. 3. Morbid obesity, body mass index 48.8. 4. Hypertensive heart disease. 5. Obstructive sleep apnea, uses CPAP machine. 6. Inguinal hernia. 7. Essential hypertension. HOSPITAL COURSE: This patient presented with CHF exacerbation manifesting as shortness of breath. The patient has had cardioversion x3 in the past and patient was scheduled for gallbladder surgery by Dr. Manzo. The patient was told to take Eliquis for anticoagulation, but declined the same. I did speak at length today telling him the risk and benefit, but at this point he does not wish to take Eliquis. He does understand the risks including stroke and possibly sometimes. The patient's heart rate is better controlled. Blood pressure is 114/71. The patient was seen by [facility], Dr. Valerio and suzi to be discharged. ON EXAMINATION: LUNGS: Improved air entry. HEART: Sounds irregular, decreased edema. DISCHARGE MEDICATIONS: 1. Potassium 20 mEq a day. 2. Eliquis, patient does not want to take. 3. Coreg 6.25 p.o. b.i.d. 4. Lasix 40 mg b.i.d. 5. Cozaar 25 mg a day. 6. Aldactone 25 mg a day. Follow up with Dr. Portillo on 03/06/2018. Follow up with Dr. Maribel Dean on 02/15/2018. BMP on 02/18/2018. Prognosis guarded. Additionally, the patient's 2D echo shows EF less than 20% and severe global hypokinesia. Discharge planning more than 35 minutes. MMODL / IJN: [id number] /
== END 2018-02-12 15:20 | disposition home or self-care (01) | DRG 292 ==
LOC: EC 10:00 → 6SEL 12:20
PROVIDERS: ADMIT Hospitalist; ATTEND Hospitalist
PROC: 5A09357 Assistance with Respiratory Ventilation, Less than 24 Consecutive Hours, Continuous Positive Airway Pressure (ICD-10-PCS; principal; 2018-02-11)
DX: I11.0 Hypertensive heart disease with heart failure (principal); Z68.42 Body mass index [BMI] 45.0-49.9, adult; I31.3 Pericardial effusion (noninflammatory); I50.23 Acute on chronic systolic (congestive) heart failure; E66.01 Morbid (severe) obesity due to excess calories; I42.9 Cardiomyopathy, unspecified; E87.6 Hypokalemia; G47.33 Obstructive sleep apnea (adult) (pediatric); I48.2 Chronic atrial fibrillation; K40.90 Unilateral inguinal hernia, without obstruction or gangrene, not specified as recurrent; L98.9 Disorder of the skin and subcutaneous tissue, unspecified; K82.9 Disease of gallbladder, unspecified; Z91.19 Patient's noncompliance with other medical treatment and regimen; Z79.899 Other long term (current) drug therapy; Z88.1 Allergy status to other antibiotic agents; Z88.5 Allergy status to narcotic agent
CPT/HCPCS: 36415; 71046; 80048; 80053; 82550; 82553; 83735; 83880; 84443; 84484; 85025; 85610; 85730; 87040; 93005; 93306; 94760; 96365; 96366; 96375; 99285